=== PATIENT | male | born 1975 | race Caucasian/White ===

== ENCOUNTER 2017-02-17 20:02 | Emergency (ER) | payer OTHER ==
--- NOTE | 2017-02-17 20:35 | EDPHY ---
H & P Time Seen by Provider: 02/17/17 20:16 HPI/ROS: Chief complaint. Fever HPI. 41-year-old healthy male had diarrhea yesterday but not today. He has had 24 hours of upper respiratory symptoms including sense of sinus pressure and slight sore throat. He just return today from travel to [place] and before that [place]. Lots of people were sick in the office in 1 day. He went to urgent care this evening because he had fever and chills and shivering which he could stop. He was found to have fever 104 degrees. Somewhat dizzy. Denies chest discomfort, shortness of breath, cough. No abdominal pain or vomiting. No blood in the diarrhea. No urinary symptoms. No rash. Negative flu test at urgent care ROS Constitutional. Fever and chills Eyes. no problems with vision ENT. Upper respiratory congestion. Sore throat Cardiovascular. no chest pain Respiratory. no shortness of breath, no cough Abdominal. Diarrhea but no abdominal pain or nausea vomiting. . no problems urinating MS. no calf pain/swelling, no neck/back pain, no joint pain Skin. no rash Lymph. no swollen glands Neuro. Dizzy Past Medical/Surgical History: Seasonal allergies, sinus surgery, esophageal tear with surgery Social History: , nonsmoker, no alcohol Smoking Status: Former smoker Physical Exam: General Appearance: Alert well-developed male temp 38.9degrees heart rate 103, blood pressure 90/68, O2 saturation 92% on room air Eyes: Pupils equal and round no pallor or injection. ENT, tympanic membranes are normal. Pharynx injected with some exudate. Respiratory: There are no retractions, lungs are clear to auscultation. Cardiovascular: Regular rate and rhythm. Gastrointestinal: Abdomen is soft and nontender, no masses, bowel sounds normal. Neurological: Awake and alert, sensory and motor exams grossly normal. Skin: Warm and dry, no rashes. Musculoskeletal: Neck is supple nontender. Extremities symmetrical, full range of motion. Psychiatric: Patient is oriented X 3, there is no agitation. Constitutional: Initial Vital Signs Temperature (C) 38.9 C H 02/17/17 20:06 Heart Rate 103 H 02/17/17 20:06 Respiratory Rate 20 02/17/17 20:06 Blood Pressure 90/68 L 02/17/17 20:06 O2 Sat (%) 92 02/17/17 20:06 O2 Delivery Mode Room Air Allergies/Adverse Reactions: No Known Allergies Allergy (Unverified 02/17/17 20:06) Home Medications: Medication Instructions Recorded Flonase Allergy Relief 02/17/17 [id number] 02/17/17 Medical Decision Making - Diagnostics Imaging Results: Imaging Impressions Chest X-Ray 02/17/17 20:36 Impression: Normal chest. Procedures: IV normal saline. Sepsis workup ED Course/Re-evaluation: Re-evaluation 10:00 p.m.. Patient is stable. Feeling better. He and I discussed treatment plan including criteria for return importance of follow-up and further evaluation.. Current blood pressure now is 127/84. He expresses understanding and agreement Differential Diagnosis: I think this is likely viral syndrome. He had a negative influenza at the urgent care. No evidence for pneumonia. This was preceded by diarrhea which is now resolved and has no abdominal pain. I also considered urinary symptoms. I considered sepsis. - Data Points Laboratory Results: Laboratory Results 02/17/17 21:01 02/17/17 21:01 02/17/17 02/17/17 02/17/17 Unknown 21:27 21:10 WBC RBC Hgb Hct MCV MCH MCHC RDW Plt Count MPV Neut % (Auto) Lymph % (Auto) [place] % (Auto) Eos % (Auto) Baso % (Auto) Nucleat RBC Rel Count Absolute Neuts (auto) Absolute Lymphs (auto) Absolute Monos (auto) Absolute Eos (auto) Absolute Basos (auto) Absolute Nucleated RBC Immature Gran % Immature Gran # PT INR APTT VBG Lactic Acid 0.5 mmol/L L mmol/L (0.7-2.1) Sodium Potassium Chloride Carbon Dioxide Anion Gap BUN Creatinine Estimated GFR Glucose Calcium Total Bilirubin Urine Color Urine Appearance Urine pH Ur Specific [place] Urine Protein Urine Ketones Urine Blood Urine Nitrate Urine Bilirubin Urine Urobilinogen Ur Leukocyte Esterase Urine Glucose Influenza A & B (PCR) Cancelled Group A Strep Screen Group A Strep DNA Pending 02/17/17 02/17/17 02/17/17 21:01 21:01 21:01 WBC RBC Hgb Hct MCV MCH MCHC RDW Plt Count MPV Neut % (Auto) Lymph % (Auto) [place] % (Auto) Eos % (Auto) Baso % (Auto) Nucleat RBC Rel Count Absolute Neuts (auto) Absolute Lymphs (auto) Absolute Monos (auto) Absolute Eos (auto) Absolute Basos (auto) Absolute Nucleated RBC Immature Gran % Immature Gran # PT 13.8 SEC SEC (12.0-15.0) INR 1.07 (0.83-1.16) APTT 28.5 SEC SEC (23.0-38.0) VBG Lactic Acid Sodium 130 mEq/L L mEq/L (134-144) Potassium 3.8 mEq/L mEq/L (3.5-5.2) Chloride 99 mEq/L mEq/L (97-110) Carbon Dioxide 25 mEq/l mEq/l (22-31) Anion Gap 6 mEq/L L mEq/L (8-16) BUN 15 mg/dL mg/dL (7-23) Creatinine 0.9 mg/dL mg/dL (0.7-1.3) Estimated GFR > 60 Glucose 92 mg/dL mg/dL (70-100) Calcium 8.7 mg/dL mg/dL (8.5-10.4) Total Bilirubin 0.4 mg/dL mg/dL (0.1-1.4) Urine Color COLORLESS Urine Appearance CLEAR Urine pH 6.0 (5.0-7.5) Ur Specific [place] 1.004 (1.002-1.030) Urine Protein NEGATIVE (NEGATIVE) Urine Ketones NEGATIVE (NEGATIVE) Urine Blood NEGATIVE (NEGATIVE) Urine Nitrate NEGATIVE (NEGATIVE) Urine Bilirubin NEGATIVE (NEGATIVE) Urine Urobilinogen NEGATIVE EU EU (0.2-1.0) Ur Leukocyte Esterase NEGATIVE (NEGATIVE) Urine Glucose NEGATIVE (NEGATIVE) Influenza A & B (PCR) Group A Strep Screen Group A Strep DNA 02/17/17 02/17/17 21:01 20:30 WBC 4.19 10^3/uL 10^3/uL (3.80-9.50) RBC 4.25 10^6/uL L 10^6/uL (4.40-6.38) Hgb 13.4 g/dL L g/dL (13.7-17.5) Hct 37.2 % L % (40.0-51.0) MCV 87.5 fL fL (81.5-99.8) MCH 31.5 pg pg (27.9-34.1) MCHC 36.0 g/dL g/dL (32.4-36.7) RDW 12.1 % % (11.5-15.2) Plt Count 158 10^3/uL 10^3/uL (150-400) MPV 9.1 fL fL (8.7-11.7) Neut % (Auto) 69.3 % % (39.3-74.2) Lymph % (Auto) 15.5 % % (15.0-45.0) [place] % (Auto) 14.3 % H % (4.5-13.0) Eos % (Auto) 0.2 % L % (0.6-7.6) Baso % (Auto) 0.2 % L % (0.3-1.7) Nucleat RBC Rel Count 0.0 % % (0.0-0.2) Absolute Neuts (auto) 2.90 10^3/uL 10^3/uL (1.70-6.50) Absolute Lymphs (auto) 0.65 10^3/uL L 10^3/uL (1.00-3.00) Absolute Monos (auto) 0.60 10^3/uL 10^3/uL (0.30-0.80) Absolute Eos (auto) 0.01 10^3/uL L 10^3/uL (0.03-0.40) Absolute Basos (auto) 0.01 10^3/uL L 10^3/uL (0.02-0.10) Absolute Nucleated RBC 0.00 10^3/uL 10^3/uL (0-0.01) Immature Gran % 0.5 % % (0.0-1.1) Immature Gran # 0.02 10^3/uL 10^3/uL (0.00-0.10) PT INR APTT VBG Lactic Acid Sodium Potassium Chloride Carbon Dioxide Anion Gap BUN Creatinine Estimated GFR Glucose Calcium Total Bilirubin Urine Color Urine Appearance Urine pH Ur Specific [place] Urine Protein Urine Ketones Urine Blood Urine Nitrate Urine Bilirubin Urine Urobilinogen Ur Leukocyte Esterase Urine Glucose Influenza A & B (PCR) Group A Strep Screen NEGATIVE (NEGATIVE) Group A Strep DNA Medications Given: Discontinued Medications Sodium Chloride (Ns) 1,000 mls @ 0 mls/hr IV ONCE ONE; Wide Open PRN Reason: Protocol Stop: 02/17/17 20:37 Last Admin: 02/17/17 21:27 Dose: 1,000 mls Departure - Departure Disposition: Home, Routine, Self-Care Clinical Impression: Viral syndrome Condition: Good Instructions: Viral Syndrome (ED), Fever in Adults (ED) Additional Instructions: Tylenol 1000 mg every 6 hours. Ibuprofen 800 mg every 6 hours. May alternate these every 3 hours for better fever control. Drink plenty of fluids. Return for worsening symptoms. Recheck in 2-3 days if not improving Referrals: NONE *PRIMARY CARE P,. [Primary Care Provider] - As per Instructions
[2017-02-17] MEDS ORDERED: NS 1,000 ML IV ONE (20:36)
[2017-02-17 21:21] LABS: % IMMATURE GRANULYOCYTES 0.5 % (0.0-1.1); ABSOLUTE IMMATURE GRANULOCYTES 0.02 10^3/uL (0.00-0.10); ADD DIFF? NO; ADD MORPH? NO; ADD SCAN? NO; ATYPICAL LYMPHOCYTE FLAG 10 (0-99); FRAGMENT RBC FLAG 0 (0-99); HEMATOCRIT 37.2 % (40.0-51.0); HEMOGLOBIN 13.4 g/dL (13.7-17.5); LEFT SHIFT FLG 0 (0-99); LIPEMIA HEMOLYSIS FLAG 90 (0-99); MEAN CELL HEMOGLOBIN 31.5 pg (27.9-34.1); MEAN CELL VOLUME 87.5 fL (81.5-99.8); MEAN PLATELET VOLUME 9.1 fL (8.7-11.7); PLATELET CLUMPS FLAG 20 (0-99); PLATELET COUNT 158 10^3/uL (150-400); RED BLOOD CELL COUNT 4.25 10^6/uL (4.40-6.38); RED CELL DISTRIBUTION WIDTH 12.1 % (11.5-15.2)
[2017-02-17 21:32] LABS: COLOR COLORLESS; LEUKOCYTE ESTERASE,URINE NEGATIVE (NEGATIVE); NITRITE,URINE NEGATIVE (NEGATIVE)
[2017-02-17 21:37] LABS: ANION GAP 6 mEq/L (8-16); BILIRUBIN,TOTAL 0.4 mg/dL (0.1-1.4); CALCIUM 8.7 mg/dL (8.5-10.4); CARBON DIOXIDE 25 mEq/l (22-31); CHLORIDE 99 mEq/L (97-110); CREATININE 0.9 mg/dL (0.7-1.3); GLOMERULAR FILTRATION RATE > 60; GLUCOSE 92 mg/dL (70-100); POTASSIUM 3.8 mEq/L (3.5-5.2); SODIUM 130 mEq/L (134-144)
[2017-02-17 21:48] LABS: INR 1.07 (0.83-1.16); PROTIME(PATIENT) 13.8 SEC (12.0-15.0)
[2017-02-17 21:49] LABS: APTT 28.5 SEC (23.0-38.0)
[2017-02-17 21:55] VITALS: BP 127/84; PULSE 91; RESP 16; O2SAT 97
[2017-02-17] MEDS ORDERED: IBUPROFEN 600 MG TAB PO ONE ×2 (22:36→22:44)
[2017-02-17] MEDS ORDERED: ACETAMINOPHEN 500 MG TAB ONE (22:37)
[2017-02-17 22:41] VITALS: TEMP 100
[2017-02-17] MEDS ORDERED: ACETAMINOPHEN 500 MG TAB PO ONE (22:44)
== END 2017-02-17 22:45 | disposition home or self-care (01) ==
DX: B34.9 Viral infection, unspecified (principal); E86.9 Volume depletion, unspecified; Z87.891 Personal history of nicotine dependence